=== PATIENT | female | born 1960 | race Caucasian/White ===

== ENCOUNTER 2023-11-06 12:08 | Emergency (ER) | payer MEDICARE, SELFPAY ==
[2023-11-06 12:09] VITALS: BMI 27.5
[2023-11-06 12:10] VITALS: BP 147/85
[2023-11-06 12:11] VITALS: BP 147/85
[2023-11-06 12:30] VITALS: BP 150/82
--- NOTE | 2023-11-06 12:54 | ED.GENMED ---
History of Present Illness
<Ravindra Celis Jr., PA-C - Last Filed: 11/07/23 18:01>
General
Chief Complaint: Fall
Source: patient
Exam Limitations: none
Time Seen by Provider: 11/06/23 12:48
Nursing documentation reviewed up to this point in time: agreed with
Travel History
Have you had any contact with someone who has COVID-19?: No
Do you have any symptoms of coronavirus? Fever > 100 degrees, chills, cough, shortness of breath, sore throat, loss of taste or smell, muscle aches, or headache?: No
History of Present Illness
History of Present Illness:
63-year-old female presenting to the emergency department today with concerns of right-sided hip discomfort. Pain worsening yesterday no specific injury did fall and hit her hip a few days prior but denies significant discomfort at that time.
Having difficulty ambulating secondary to pain. Denies any fevers redness swelling or warmth.
Past History
<Ravindra Celis Jr., PA-C - Last Filed: 11/07/23 18:01>
Past History
ED Past Medical History: Other (Chronic neck/back pain)
ED Past Surgical History: None
Social History
Tobacco: Smoker
Alcohol: Occasional
Family History
Family History: Other (She has a son with testicular cancer)
Review of Systems
<Ravindra Celis Jr., PA-C - Last Filed: 11/07/23 18:01>
Review of Systems
Allergies reviewed?: Yes
All Other Systems: ROS reviewed and negative except as documented in HPI and ROS
Phy Exam
<Ravindra Celis Jr., PA-C - Last Filed: 11/07/23 18:01>
Physical Exam
Physical Exam:
GENERAL: Alert , in no apparent distress
EYE: pupils equal and reactive
NECK: Supple, no significant adenopathy.
ENT: o/p clr, mmm.
CARDIAC: Regular rate and rhythm .
LUNGS: Clear breath sounds bilaterally, no acute respiratory distress, no wheezes/rales/rhonchi
ABDOMEN: Soft, without focal tenderness, no r/g, no cvat
NEUROLOGICAL: Alert and oriented, no focal neuro deficits
SKIN: Warm and dry, skin intact.
MUSCULOSKELETAL: No edema, well perfused.
PSYCH: Normal and appropriate interaction.
Course
<Ravindra Celis Jr., PA-C - Last Filed: 11/07/23 18:01>
Orders/Labs/Results
Orders:
Orders
11/06/23 12:36
Hip, Right 2-3 Views [CR Hip - RT w/wo Pel 2-3 Vw*] Urgent
Comment:
Reason For Exam: pain
Include a pelvis x-ray?: Yes
11/06/23 12:52
Ketorolac [Toradol] 30 mg IM NOW STA
11/06/23 13:37
Dexamethasone [Decadron] 10 mg PO NOW STA
11/06/23 15:03
CT Pelvis W/o Iv Contrast Urgent
Comment:
Reason For Exam: right hip pain, fall2 days ago
11/06/23 17:08
Physical Therapy Consult [Pt Eval And Treat] Urgent
Treatment: Ambulate as tolerated, Right hip pain after fall, no fracture
Activity Level: As Tolerated
11/06/23 17:10
HYDROmorphone [Dilaudid] 1 mg IM NOW STA
11/06/23 17:53
Case Management Consult ONCE
Case Management Consult: Discharge Planning
Requested By:: PHYSICIAN
Comment: Needs home P/T
Vital Signs
Initial and Last Documented VS:
Initial Vital Signs
Temp Pulse Resp BP Pulse Ox
97.8 F 84 16 147/85 98
11/06/23 12:10 11/06/23 12:10 11/06/23 12:10 11/06/23 12:10 11/06/23 12:10
Last Documented Vital Signs
Temp Pulse Resp BP Pulse Ox
97.8 F 74 16 112/78 99
11/06/23 12:10 11/06/23 18:28 11/06/23 18:28 11/06/23 18:28 11/06/23 18:28
<Aydee Dang NP - Last Filed: 11/06/23 18:37>
Orders/Labs/Results
Orders:
Orders
11/06/23 12:36
Hip, Right 2-3 Views [CR Hip - RT w/wo Pel 2-3 Vw*] Urgent
Comment:
Reason For Exam: pain
Include a pelvis x-ray?: Yes
11/06/23 12:52
Ketorolac [Toradol] 30 mg IM NOW STA
11/06/23 13:37
Dexamethasone [Decadron] 10 mg PO NOW STA
11/06/23 15:03
CT Pelvis W/o Iv Contrast Urgent
Comment:
Reason For Exam: right hip pain, fall2 days ago
11/06/23 17:08
Physical Therapy Consult [Pt Eval And Treat] Urgent
Treatment: Ambulate as tolerated, Right hip pain after fall, no fracture
Activity Level: As Tolerated
11/06/23 17:10
HYDROmorphone [Dilaudid] 1 mg IM NOW STA
11/06/23 17:53
Case Management Consult ONCE
Case Management Consult: Discharge Planning
Requested By:: PHYSICIAN
Comment: Needs home P/T
Vital Signs
Initial and Last Documented VS:
Initial Vital Signs
Temp Pulse Resp BP Pulse Ox
97.8 F 84 16 147/85 98
11/06/23 12:10 11/06/23 12:10 11/06/23 12:10 11/06/23 12:10 11/06/23 12:10
Last Documented Vital Signs
Temp Pulse Resp BP Pulse Ox
97.8 F 74 16 112/78 99
11/06/23 12:10 11/06/23 18:28 11/06/23 18:28 11/06/23 18:28 11/06/23 18:28
<Ravindra Celis Jr., PA-C - Last Filed: 11/07/23 18:01>
MDM/Problems Addressed
MDM/Problems Addressed:
63-year-old female presenting to the emergency department today with concerns of right-sided hip discomfort starting yesterday. Claims that she did have a fall 2 days ago but denies significant discomfort at the time. Denies any numbness weakness
changes in urination pain is mainly to the right hip and right posterior buttock region. No overlying skin changes. Patient able to range at the right hip infected joint seems very unlikely considering no redness or warmth good range of motion at
the hip. Patient still unable to ambulate after receiving Toradol and steroid plan for CT scan to ensure no radio occult fracture on x-ray.
<Aydee Dang NP - Last Filed: 11/06/23 18:37>
MDM/Problems Addressed
MDM/Problems Addressed:
63-year-old female presenting to the emergency department today with concerns of right-sided hip discomfort starting yesterday. Claims that she did have a fall 2 days ago but denies significant discomfort at the time. Denies any numbness weakness
changes in urination pain is mainly to the right hip and right posterior buttock region. No overlying skin changes. Patient able to range at the right hip infected joint seems very unlikely considering no redness or warmth good range of motion at
the hip. Patient still unable to ambulate after receiving Toradol and steroid plan for CT scan to ensure no radio occult fracture on x-ray.
5:[address] pelvis radiology report read: No acute fracture.
P/T in, pt unable to get OOB due to pain.
Pt will be given Dilaudid 1 mg IM then reevaluate
5:56 PM
after IM Dilaudid, patient is able to get out of bed and use her walker to ambulate slowly with minimal weightbearing on the right leg to the bathroom, she got herself dressed, still with significant pain.
Case management consulted for home P/T. left message on answering service as well as consult is in.
Pt. DC'd to home with walker.
Friend staying with her picked her up
Rx for Prednisone 40 mg daily x 4 days and [place] # 6 tablets sent to her pharmacy.
Referred to orthopedics for f/u
<Aydee Dang NP - Last Filed: 11/06/23 18:37>
*Critical Care Note
Total Time (30-74mins, 75-104mins- exclusive of procedures): Not Applicable
ED Attending Note
<Ravindra Celis Jr., PA-C - Last Filed: 11/07/23 18:01>
-
Portions of this chart may have been created with voice recognition software.� Occasional wrong word or��sound alike� substitutions may have occurred due to the inherent limitations of voice recognition software.
Discharge Plan
Departure
Patient Disposition: Home (Routine Discharge)
Date of Disposition: 11/06/23
Time of Disposition: 17:58
Patient with high blood pressure during this ER visit?: No
Condition: Fair
Discharge Problem:
Ambulatory dysfunction, Osteoarthritis of right hip, Fall, Injury of right hip
Instructions: Osteoarthritis, Hip Bursitis, Preventing falls in adults, Hip Pain ED
Prescriptions:
New
prednisone 20 mg tablet
40 mg PO DAILY Qty: 8 0RF
hydrocodone-acetaminophen 5-325 mg tablet
1 tab PO Q6H PRN (Reason: Pain) Qty: 6 0RF
Referrals:
Cassia Bowling DO [Active] - Next open appointment
UNKNOWN - PT DOES,NOT KNOW [Family Provider] -
Activity Restrictions/Additional Instructions:
As we discussed, you may have pain from the fall aggravating the arthritis in the hip and/or bursitis aggravated from the trauma.
I sent a prescription to your pharmacy for Prednisone and [place] (narcotic pain medication).
Start the Prednisone tomorrow as you were given a dose of steroid here today.
Ibuprofen 600 mg (with food) every 6 hours as needed for pain
Use the [place] only for severe pain or if the Ibuprofen isn't helping
Someone from Case Management should call you tomorrow to set up home Physical Therapy. Call them at [phone] if you don't hear from them by noon.
Move around is much as you can as staying still will only make the area more stiff.
Interventions
Interventions:
*Risk Screen - Suicide Last Done: 11/06/23 12:10
*General Assessment Last Done: 11/06/23 12:10
*Neglect/Abuse Screening Last Done: 11/06/23 12:10
ED- Fall Risk Assessment Last Done: 11/06/23 12:10
*ED COVID-19 Vaccine History Last Done: 11/06/23 12:10
*Nursing Disposition Last Done: 11/06/23 18:28
ED-Musculoskeletal Assessment Last Done: 11/06/23 12:10
ED- Neurological Assessment Last Done: 11/06/23 18:11
ED-Skin Assessment Last Done: 11/06/23 18:11
Discharge Date and Time
Discharge Date/Time: 11/06/23 18:48
Print Language: CITIZEN OF [place]
[2023-11-06] MEDS: TORADOL 30 MG IM (13:11)
[2023-11-06] MEDS: DECADRON 10 MG PO (14:02)
[2023-11-06] MEDS: DILAUDID 1 MG IM (17:22)
[2023-11-06 18:28] VITALS: BP 112/78
== END 2023-11-06 18:48 | disposition home or self-care (01) ==
LOC: EMR 12:08
PROVIDERS: EMERGENCY PHYSICIAN Emergency Medicine
DX: S79.911A Unspecified injury of right hip, initial encounter (principal); M25.551 Pain in right hip; M16.11 Unilateral primary osteoarthritis, right hip; R26.89 Other abnormalities of gait and mobility; W19.XXXA Unspecified fall, initial encounter; M54.9 Dorsalgia, unspecified; M54.2 Cervicalgia; G89.29 Other chronic pain; F17.200 Nicotine dependence, unspecified, uncomplicated
CPT/HCPCS: 99284; 96372 ×2; 72192; 73502